=== PATIENT | female | born 1940 | race Asian ===

== ENCOUNTER → 2021-04-09 | Outpatient (CLI) | payer MEDICARE ==
[~2021-04-09] MED LIST: AMLO5TAB4 PO; ASPI-496 PO; ATOR10TA9 PO; BISO1TAB49 PO
== END | disposition home or self-care (01) ==
LOC: CFH 07:57 → EDSTATUS 08:00
PROVIDERS: ATTEND Internal Medicine Cardiovascular Disease
DX: I08.8 Other rheumatic multiple valve diseases (principal); I11.9 Hypertensive heart disease without heart failure; E11.9 Type 2 diabetes mellitus without complications; E78.5 Hyperlipidemia, unspecified
CPT/HCPCS: 93306